=== PATIENT | female | born 1935 | race African-American/Black ===

== ENCOUNTER → 2017-09-04 | Emergency (ER) | payer OTHER ==
[~2017-09-04] VITALS: Ht 160 cm; Wt 57.6 kg
[~2017-09-04] MED LIST: AVAPRO150 MG PO; NORVASC10 MG PO; SYNTHROID88 MCG PO; ULTRAM ER100 MG PO
== END | disposition home or self-care (01) ==
LOC: ER 10:30
DX: M25.572 Pain in left ankle and joints of left foot (principal); M25.562 Pain in left knee; I73.9 Peripheral vascular disease, unspecified

== ENCOUNTER 2017-12-01 11:18 | Outpatient (CLI) | payer OTHER | END 2017-12-01 11:30 | disposition home or self-care (01) | LOC: MAMO-SONO 11:18 | DX: Z12.31 Encounter for screening mammogram for malignant neoplasm of breast (principal); Z87.898 Personal history of other specified conditions; I10 Essential (primary) hypertension; I80.222 Phlebitis and thrombophlebitis of left popliteal vein; E03.8 Other specified hypothyroidism; N63.10 Unspecified lump in the right breast, unspecified quadrant; N63.20 Unspecified lump in the left breast, unspecified quadrant ==

== ENCOUNTER 2017-12-01 13:40 | Outpatient (CLI) | payer OTHER | END 2017-12-01 13:49 | disposition home or self-care (01) | LOC: LAB 13:40 | DX: I10 Essential (primary) hypertension (principal); I80.222 Phlebitis and thrombophlebitis of left popliteal vein; E03.8 Other specified hypothyroidism; D50.8 Other iron deficiency anemias; D51.8 Other vitamin B12 deficiency anemias; R97.0 Elevated carcinoembryonic antigen [CEA]; R97.8 Other abnormal tumor markers ==

== ENCOUNTER 2017-12-06 15:12 | Outpatient (CLI) | payer OTHER | END 2017-12-06 15:14 | disposition home or self-care (01) | LOC: NUCLEAR 15:12 | DX: I80.222 Phlebitis and thrombophlebitis of left popliteal vein (principal); I10 Essential (primary) hypertension; E03.8 Other specified hypothyroidism ==

== ENCOUNTER 2018-12-26 16:01 | Emergency (ER) | payer OTHER ==
[~2018-12-26] VITALS: Ht 142.2 cm; Wt 59.0 kg
== END 2018-12-26 18:25 | disposition home or self-care (01) ==
LOC: ER 16:01
DX: M79.605 Pain in left leg (principal); I16.1 Hypertensive emergency; I10 Essential (primary) hypertension

== ENCOUNTER 2019-08-06 14:46 | Emergency (ER) | payer OTHER ==
[~2019-08-06] VITALS: Ht 157.5 cm; Wt 57.2 kg
== END 2019-08-06 18:34 | disposition home or self-care (01) ==
LOC: ER 14:46
DX: M25.511 Pain in right shoulder (principal); M19.011 Primary osteoarthritis, right shoulder

== ENCOUNTER 2021-03-12 16:14 | Emergency (ER) | payer OTHER ==
[~2021-03-12] VITALS: Ht 160 cm; Wt 56.7 kg
[2021-03-12] MEDS ORDERED: IBU800 MG PO (21:11)
[2021-03-12] MEDS ORDERED: ULTRAM50 MG PO (21:13)
== END 2021-03-12 21:30 | disposition home or self-care (01) ==
LOC: ER 16:14
DX: S52.592A Other fractures of lower end of left radius, initial encounter for closed fracture (principal); M79.642 Pain in left hand; W18.39XA Other fall on same level, initial encounter; Y93.89 Activity, other specified; Y92.010 Kitchen of single-family (private) house as the place of occurrence of the external cause; Y99.8 Other external cause status

== ENCOUNTER → 2021-04-19 | Outpatient (CLI) | payer OTHER ==
[~2021-04-19] MED LIST changes: +IBU800 MG PO; +ULTRAM50 MG PO
== END | disposition home or self-care (01) ==
LOC: RAD 14:41
PROVIDERS: ATTEND Orthopaedic Surgery
DX: M25.532 Pain in left wrist (principal); S52.532A Colles' fracture of left radius, initial encounter for closed fracture